=== PATIENT | male | born 1980 | race African-American/Black ===

== ENCOUNTER 2017-07-09 17:13 | Emergency (ER) | payer BC ==
[~2017-07-09] VITALS: Ht 175.3 cm; Wt 75.0 kg
[2017-07-09] MEDS ORDERED: LIDOCAINE HCL 1% 10 ML VIAL INJ ONE (18:30)
[2017-07-09 19:19] VITALS: BP 142/78
[2017-07-09] MEDS ORDERED: BACITRACIN 0.9 GM PACKET OINTMENT TP ONE (19:30)
== END 2017-07-09 19:46 | disposition home or self-care (01) ==
LOC: EMS 17:16
DX: L03.011 Cellulitis of right finger (principal)
CPT/HCPCS: 10060; 99283; J3490